=== PATIENT | female | born 2000 | race Caucasian/White ===

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

== ENCOUNTER 2022-02-21 16:10 | Emergency (ER) | payer MEDICAID, OTHER ==
[~2022-02-21] VITALS: Ht 160 cm; Wt 59.0 kg
[2022-02-21] MEDS ORDERED: [UNRECOGNIZED DRUG - CODE] TP (19:43)
[2022-02-21] MEDS ORDERED: CLIN-116 PO (19:43)
[2022-02-21] MEDS ORDERED: NALO4SPR BOTHNSTRLS (19:45)
[2022-02-21] MEDS: CLINDAMYCIN HCL 150MG CAPSULE PO SCH ×3 (19:45→20:08)
[2022-02-21 20:10] VITALS: BP 114/78
== END 2022-02-21 20:10 | disposition home or self-care (01) ==
LOC: ER 16:10
DX: L02.414 Cutaneous abscess of left upper limb (principal); Z86.59 Personal history of other mental and behavioral disorders
CPT/HCPCS: 99283

== ENCOUNTER 2022-05-05 17:48 | Emergency (ER) | payer MEDICAID ==
[~2022-05-05] VITALS: Ht 160 cm; Wt 75.0 kg
[~2022-05-05 17:48] MED LIST: CLIN-116 PO; NALO4SPR BOTHNSTRLS; [UNRECOGNIZED DRUG - CODE] TP
[2022-05-05 20:06] LABS: BASOPHILS % 0.9 % (0.0-2.0); HEMATOCRIT. 36.3 % (36.0-48.0); HEMOGLOBIN. 12.1 g/dL (12.0-16.0); LYMPHOCYTES % 36.5 % (20.0-50.0); MEAN CORPUSCULAR HEMOGLOBIN 27.1 pg (28.0-32.0); MEAN CORPUSCULAR VOLUME 81.3 fL (81.0-99.0); MEAN PLATELET VOLUME 7.6 fl (7.4-10.4); MONOCYTES % 8.2 % (2.0-8.0); NEUTROPHILS % 52.4 % (40.0-76.0); PLATELET 279 x1000/uL (130-400); RED BLOOD CELL COUNT 4.46 mill/uL (4.2-5.4)
[2022-05-05 20:20] LABS: CHLORIDE 104 mEq/L (98-107)
[2022-05-05 20:45] LABS: B-HCG QUANTITATIVE 44345 mIU/mL (<3)
[2022-05-05] MEDS ORDERED: ERYT1OIN6 EACHEYE (21:44)
[2022-05-05] MEDS ORDERED: PREN-52 MT (21:44)
[2022-05-05 21:49] VITALS: BP 127/56
== END 2022-05-05 21:50 | disposition home or self-care (01) ==
LOC: ER 17:48
DX: O26.891 Other specified pregnancy related conditions, first trimester (principal); H00.016 Hordeolum externum left eye, unspecified eyelid; H00.013 Hordeolum externum right eye, unspecified eyelid; Z3A.01 Less than 8 weeks gestation of pregnancy; D64.9 Anemia, unspecified; Z79.899 Other long term (current) drug therapy
CPT/HCPCS: 36415; 76801; 80053; 81025; 84702; 85025; 86850; 86900; 99284

== ENCOUNTER 2022-05-30 16:42 | Emergency (ER) | payer MEDICAID, OTHER ==
[~2022-05-30] VITALS: Ht 160 cm; Wt 54.0 kg
[~2022-05-30 16:42] MED LIST changes: +ERYT1OIN6 EACHEYE; +PREN-52 MT
[2022-05-30 17:03] VITALS: BP 116/84
[2022-05-30 18:20] LABS: BASOPHILS % 0.4 % (0.0-2.0); HEMATOCRIT. 36.2 % (36.0-48.0); HEMOGLOBIN. 12.1 g/dL (12.0-16.0); MEAN CORPUSCULAR HEMOGLOBIN 27.1 pg (28.0-32.0); MONOCYTES % 6.5 % (2.0-8.0); NEUTROPHILS % 57.1 % (40.0-76.0); PLATELET 318 x1000/uL (130-400); RED BLOOD CELL COUNT 4.47 mill/uL (4.2-5.4); RED CELL DISTRIBUTION WIDTH 13.6 % (11.6-14.6)
[2022-05-30 18:26] LABS: CHLORIDE 102 mEq/L (98-107)
[2022-05-30 18:50] LABS: B-HCG QUANTITATIVE 3200 mIU/mL (<3)
== END 2022-05-30 20:34 | disposition home or self-care (01) ==
LOC: ER 16:42
DX: O03.9 Complete or unspecified spontaneous abortion without complication (principal); Z3A.08 8 weeks gestation of pregnancy; D64.9 Anemia, unspecified; J45.909 Unspecified asthma, uncomplicated; Z79.899 Other long term (current) drug therapy
CPT/HCPCS: 36415; 76801; 80053; 81025; 84702; 85025; 86850; 86900; 99284

== ENCOUNTER 2022-08-10 19:35 | Emergency (ER) | payer MEDICAID, OTHER ==
[~2022-08-10] VITALS: Ht 160 cm; Wt 64.0 kg
[2022-08-10 19:55] VITALS: BP 173/92
== END 2022-08-11 00:33 | disposition left against medical advice (07) ==
LOC: ER 19:35
DX: Z53.21 Procedure and treatment not carried out due to patient leaving prior to being seen by health care provider (principal)
CPT/HCPCS: 99281